=== PATIENT | female | born 1950 | race Hispanic/Latino ===

== ENCOUNTER → 2018-07-30 | Day surgery (SDC) | payer MEDICARE ==
[2018-07-28 10:50] LABS: BASOPHILS % 0.3 % (0.0-1.0); EOSINOPHILS # (AUTO) 0.3 (0.0-0.4); EOSINOPHILS % 3.3 % (0.0-6.0); HEMATOCRIT 36.5 % (34.2-44.1); HEMOGLOBIN 11.2 g/dL (12.0-16.0); LYMPHOCYTES # (AUTO) 2.9 (1.0-3.2); LYMPHOCYTES % 29.4 % (18.0-39.1); MEAN CORPUSCULAR HEMOGLOBIN 28.6 pg (28-32); MEAN CORPUSCULAR HGB CONC 30.7 g/dL (31-35); MEAN CORPUSCULAR VOLUME 93.4 fL (81-99); MONOCYTES # (AUTO) 0.6 (0.2-0.8); MONOCYTES % 5.9 % (4.4-11.3); NEUTROPHILS % 60.6 % (38.7-80.0); PLATELET COUNT 251 x10e3/uL (140-360); RED BLOOD COUNT 3.91 x10e6/uL (3.6-5.1); RED CELL DISTRIBUTION WIDTH 13.2 % (11.7-14.4)
[~2018-07-30] MED LIST: ALBUTEROL0.63 MG/3 INH; ATORVASTATIN CA20 MG PO; BASAGLAR SC; FENTANYL CITRATE/PF 100MCG/2 ML INJ ONE; GABAPENTIN300 MG PO; HUMALOG100 UNIT/3 SC; LOSARTAN POTAS100 MG PO; METFORMIN HCL500 MG PO; MIDAZOLAM HCL 2 MG/2 ML VIAL ONE; PANTOPRAZOLE SO40 MG PO; PROPOFOL IV EMULSION 10 MG/ML 20 ML VIAL ONE
[2018-07-30 10:30] VITALS: BP 121/93
--- NOTE | 2018-07-30 12:59 | Operative Report ---
DATE OF PROCEDURE: July 30, 2018 PROCEDURES PERFORMED 1. Esophagogastroduodenoscopy. 2. Colonoscopy. PREOPERATIVE DIAGNOSES 1. Dysphagia. 2. History of colon polyps. POSTOPERATIVE DIAGNOSES 1. Hiatal hernia. 2. Gastric ulcers. 3. Gastritis. 4. Duodenitis. 5. Colonic polyp in the descending colon. 6. Diverticulosis. The first procedure was the EGD. Using general anesthesia, the Olympus TREVON video gastroscope was inserted into the patient's oropharynx and advanced through the hypopharynx and down into the esophagus. The esophagus was fine, but we took a biopsy looking for the eosinophilic esophagitis. In the lower esophagus we had a sliding-type hiatal hernia from 38 to 39 cm. No evidence of reflux was noted. The stomach was entered and insufflated with air. The mucosal pattern in the cardia, fundus, body and the antrum was viewed. There were multiple small ulcerations in the fundus as well as the antrum and body of the stomach with associated gastritis throughout. As we entered the duodenum, there was evidence of a duodenitis in the duodenal bulb but no ulcerations. The endoscope was then withdrawn back up into the stomach, where biopsies were obtained in the antrum and fundus looking for the H. pylori infection. The endoscope was then withdrawn back up into the esophagus, hypopharynx, oropharynx, and out of the patient's mouth, and the procedure was ended. The next procedure was the colonoscopy. Using the Olympus TREVON video colonoscope, it was inserted into the patient's rectum and advanced without difficulty to the level of the cecum. The cecum did contain a lot of excessive amount of stool; so, we were never able to visualize the appendix but we did visualize the ileocecal valve. The colon was studied from that level back down to the rectum. In the mid descending colon there was a 1 cm size sessile polyp which was removed with the electrical snare cautery. Diverticula were present in the sigmoid and descending colon without evidence of a diverticulitis. The colonoscope was withdrawn from the patient's rectum, and the procedure was ended. In conclusion, we have a benign 1 cm size polyp which was removed with electrical snare cautery and diverticulosis. Job#: [id number]
== END | disposition home or self-care (01) ==
LOC: OR 07:00
PROVIDERS: ATTEND Internal Medicine Gastroenterology
DX: K21.0 Gastro-esophageal reflux disease with esophagitis (principal); K63.5 Polyp of colon; K29.70 Gastritis, unspecified, without bleeding; K25.9 Gastric ulcer, unspecified as acute or chronic, without hemorrhage or perforation; K44.9 Diaphragmatic hernia without obstruction or gangrene; K29.80 Duodenitis without bleeding; K57.30 Diverticulosis of large intestine without perforation or abscess without bleeding; K59.00 Constipation, unspecified; G47.33 Obstructive sleep apnea (adult) (pediatric); J45.909 Unspecified asthma, uncomplicated; I10 Essential (primary) hypertension; E78.5 Hyperlipidemia, unspecified; I83.90 Asymptomatic varicose veins of unspecified lower extremity; E11.9 Type 2 diabetes mellitus without complications; E66.01 Morbid (severe) obesity due to excess calories; F41.9 Anxiety disorder, unspecified; F32.9 Major depressive disorder, single episode, unspecified; Z01.810 Encounter for preprocedural cardiovascular examination; Z01.812 Encounter for preprocedural laboratory examination; Z91.018 Allergy to other foods; Z79.4 Long term (current) use of insulin; Z68.42 Body mass index [BMI] 45.0-49.9, adult; Z87.891 Personal history of nicotine dependence
CPT/HCPCS: 36415 ×2; 43239; 45385; 82948; 85025; 88305; 88312; 93005; J2250; J2704

== ENCOUNTER → 2018-10-22 | Day surgery (SDC) | payer MEDICARE ==
[2018-10-20 14:34] LABS: BASOPHILS % 0.3 % (0.0-1.0); EOSINOPHILS # (AUTO) 0.3 (0.0-0.4); EOSINOPHILS % 3.7 % (0.0-6.0); HEMATOCRIT 35.8 % (34.2-44.1); HEMOGLOBIN 11.1 g/dL (12.0-16.0); LYMPHOCYTES # (AUTO) 2.6 (1.0-3.2); LYMPHOCYTES % 33.2 % (18.0-39.1); MEAN CORPUSCULAR VOLUME 90.2 fL (81-99); MONOCYTES # (AUTO) 0.5 (0.2-0.8); MONOCYTES % 6.5 % (4.4-11.3); NEUTROPHILS # (AUTO) 4.3 (2.1-6.9); NEUTROPHILS % 55.6 % (38.7-80.0); PLATELET COUNT 270 x10e3/uL (140-360); RED BLOOD COUNT 3.97 x10e6/uL (3.6-5.1); RED CELL DISTRIBUTION WIDTH 13.2 % (11.7-14.4)
[~2018-10-22] MED LIST changes: +ASPIR 8181 MG PO; +LIDOCAINE HCL 2% LOCAL INJ 5 ML SDV VIAL INJ ONE
--- OUTSIDE RECORDS SUMMARY | 2018-10-22 06:57 | XMS REPORT ---
Author Author [facility] Address Unknown Phone Unavailable Care Team Providers Care Quality Coordinator Name Role Phone Unavailable Unavailable Problems This patient has no known problems. Allergies, Adverse Reactions, Alerts This patient has no known allergies or adverse reactions. Medications This patient has no known medications. Results Test Description Test Time Test Comments Text Results Atomic Results Result Comments BREAST ULTRASOUND BILATERAL 2018-08-21 12:05:33 - DIAG MAMM BILATERAL TEAGAN CAD DIGITALBILATERAL DIGITAL DIAGNOSTIC MAMMOGRAM 3D/2D WITH CAD: 08/21/2018CLINICAL: Diffuse bilateral breast pain. Digital breast tomosynthesis was performed in addition to routine CC and MLO views. Current mammographic images were evaluated by either a Asana M-Vu or a [email or web address] ImageChecker CAD (computer aided detection system). Comparison is made to exams dated 08/08/2017 mammogram and 08/08/2017 ultrasound - [facility]. The patient is status post bilateral mastectomy with TRAM flap reconstruction. The TRAM flap tissue is almost entirely fatty.No suspicious mass, malignant type calcification, or lymph node abnormality detected. No abnormal mammographic findings to account for the patient's bilateral diffuse lateral breast pain.INCOMPLETE ASSESSMENT: ADDITIONAL IMAGING EVALUATION RECOMMENDEDPatient was taken to ultrasound for further evaluation.- BREAST ULTRASOUND BILATERALULTRASOUND OF BOTH BREASTS AND BOTH AXILLA: 08/21/2018Comparison is mad e to exams dated 08/08/2017 mammogram and 08/08/2017 ultrasound - [facility]. Real-time ultrasound of both TRAM flaps and both axilla was performed. No sonographic abnormality was identified. Normal appearing lymph nodes are seen in the bilateral axilla.The patient directed attention to the 3 o'clock position in the left breast and the 9 o'clock position in the right breast as the areas of pain. At these locations there are no findings to account for the patient's symptoms.IMPRESSION: BENIGN 1. There is no mammographic or targeted sonographic evidence of malignancy in either breast. No findings to account for the patient's symptoms in the lateral aspects of both breasts. Clinical follow-up as needed is recommended and further management of the patient's symptoms should be based on clinical evaluation.2. A follow-up mammogram in 12 months is recommended, if deemed clinically indicated by the referring clinician.Findings and recommendations were discussed with the patient at the conclusion of the examination today.Juliet Raymundo D.O. al/:08/21/2018 12:05:33 Entry: - 08/28/2018 07:31:24Imaging Technologist: Abiola BLEVINS, [facility] sent: BIRADS 1-2 Combo FU Letter Mammogram BI-RADS: 0 Indeterminate Ultrasound BI-RADS: 2 Benign DIAG MAMM BILATERAL TEAGAN CAD DIGITAL 2018-08-21 12:05:33 - DIAG MAMM BILATERAL TEAGAN CAD DIGITALBILATERAL DIGITAL DIAGNOSTIC MAMMOGRAM 3D/2D WITH CAD: 08/21/2018CLINICAL: Diffuse bilateral breast pain. Digital breast tomosynthesis was performed in addition to routine CC and MLO views. Current mammographic images were evaluated by either a Asana M-Vu or a [email or web address] ImageChecker CAD (computer aided detection system). Comparison is made to exams dated 08/08/2017 mammogram and [facility] The patient is status post bilateral mastectomy with TRAM flap reconstruction. The TRAM flap tissue is almost entirely fatty.No suspicious mass, malignant type calcification, or lymph node abnormality detected. No abnormal mammographic findings to account for the patient's bilateral diffuse lateral breast pain.INCOMPLETE ASSESSMENT: ADDITIONAL IMAGING EVALUATION RECOMMENDEDPatient was taken to ultrasound for further evaluation.- BREAST ULTRASOUND BILATERALULTRASOUND OF BOTH BREASTS AND BOTH AXILLA: 08/21/2018Comparison is mad e to exams dated 08/08/2017 mammogram and [facility] Real-time ultrasound of both TRAM flaps and both axilla was performed. No sonographic abnormality was identified. Normal appearing lymph nodes are seen in the bilateral axilla.The patient directed attention to the 3 o'clock position in the left breast and the 9 o'clock position in the right breast as the areas of pain. At these locations there are no findings to account for the patient's symptoms.IMPRESSION: BENIGN 1. There is no mammographic or targeted sonographic evidence of malignancy in either breast. No findings to account for the patient's symptoms in the lateral aspects of both breasts. Clinical follow-up as needed is recommended and further management of the patient's symptoms should be based on clinical evaluation.2. A follow-up mammogram in 12 months is recommended, if deemed clinically indicated by the referring clinician.Findings and recommendations were discussed with the patient at the conclusion of the examination today.Juliet Raymundo D.O. al/:08/21/2018 12:05:33 Entry: - 08/28/2018 07:31:24Imaging Technologist: Abiola BLEVINS, [facility] sent: BIRADS 1-2 Combo FU Letter Mammogram BI-RADS: 0 Indeterminate Ultrasound BI-RADS: 2 Benign
[2018-10-22 10:45] VITALS: BP 137/70
--- NOTE | 2018-10-22 10:57 | Operative Report ---
DATE OF PROCEDURE: October 22, 2018 PROCEDURE PERFORMED: Esophagogastroduodenoscopy. PREOPERATIVE DIAGNOSIS: History of recent gastric ulceration. POSTOPERATIVE DIAGNOSES 1. Gastric ulcer, healed. 2. Residual gastritis. 3. Hiatal hernia with reflux esophagitis unchanged from before. PREOPERATIVE MEDICATIONS: General anesthesia. DESCRIPTION OF PROCEDURE: Using the Olympus Clarity video gastroscope, it was inserted into the patient's oropharynx and advanced down the esophagus. In the esophageal body, everything appeared to be normal. We then had reflux esophagitis above a small hiatal hernia unchanged from before. The stomach was entered and insufflated with air. The mucosa around the cardia, fundus, body and antrum was viewed. The ulceration down in the antrum has since healed, but there was residual gastritis. A biopsy was obtained to rule out H. pylori infection. The pylorus was visualized and entered. The duodenal bulb and postbulbar duodenum were found to be normal. The endoscope was then withdrawn back up into the stomach and retroflexed, viewing the cardia and fundus from below, which again appeared to be normal. The endoscope was placed back in the body of the stomach and then slowly withdrawn back up to the esophagus. We took biopsies at the area of the esophagitis to make sure there was no [place] esophagus present. The endoscope was then withdrawn back to the hypopharynx, oropharynx and out of the patient's mouth, and the procedure was ended. In conclusion, we have findings of a healed gastric ulcer, residual gastritis, residual hiatal hernia and reflux esophagitis. Job#: [id number]
== END | disposition home or self-care (01) ==
LOC: OR 06:54
PROVIDERS: ATTEND Internal Medicine Gastroenterology
DX: K21.0 Gastro-esophageal reflux disease with esophagitis (principal); K29.70 Gastritis, unspecified, without bleeding; K44.9 Diaphragmatic hernia without obstruction or gangrene; J45.909 Unspecified asthma, uncomplicated; G47.33 Obstructive sleep apnea (adult) (pediatric); I10 Essential (primary) hypertension; E78.5 Hyperlipidemia, unspecified; E11.9 Type 2 diabetes mellitus without complications; F41.9 Anxiety disorder, unspecified; Z01.810 Encounter for preprocedural cardiovascular examination; Z01.812 Encounter for preprocedural laboratory examination; Z79.82 Long term (current) use of aspirin; Z79.4 Long term (current) use of insulin; Z68.42 Body mass index [BMI] 45.0-49.9, adult; Z85.3 Personal history of malignant neoplasm of breast
CPT/HCPCS: 36415 ×2; 43239; 82948; 85025; 88305; 88312; 93005; J2001; J2250; J2704

== ENCOUNTER → 2019-04-02 | Day surgery (SDC) | payer MEDICARE ==
--- NOTE | 2019-04-01 11:34 | Diagnostic Imaging Report ---
EXAMINATION: CHEST 2 VIEWS INDICATION: Pre-operative COMPARISON: None FINDINGS: LINES/TUBES:None LUNGS:The lungs are well-inflated. No focal consolidation or pulmonary edema. PLEURA:No pleural effusion or pneumothorax. MEDIASTINUM:The cardiomediastinal silhouette appears normal in size and shape. BONES/SOFT TISSUES:No acute osseous injury. ABDOMEN:No free air under the diaphragm. Surgical clips in both breasts. IMPRESSION: No focal pneumonia or pulmonary edema. Signed by: Maxwell Dempsey MD on 04/01/2019 11:31 AM
[2019-04-01 12:07] LABS: BASOPHILS % 0.3 % (0.0-1.0); EOSINOPHILS # (AUTO) 0.3 (0.0-0.4); EOSINOPHILS % 3.7 % (0.0-6.0); HEMATOCRIT 36.8 % (34.2-44.1); HEMOGLOBIN 11.3 g/dL (12.0-16.0); LYMPHOCYTES # (AUTO) 2.5 (1.0-3.2); LYMPHOCYTES % 34.5 % (18.0-39.1); MEAN CORPUSCULAR HEMOGLOBIN 28.3 pg (28-32); MEAN CORPUSCULAR HGB CONC 30.7 g/dL (31-35); MEAN CORPUSCULAR VOLUME 92.2 fL (81-99); MONOCYTES # (AUTO) 0.5 (0.2-0.8); MONOCYTES % 6.2 % (4.4-11.3); NEUTROPHILS % 54.3 % (38.7-80.0); PLATELET COUNT 276 x10e3/uL (140-360); RED BLOOD COUNT 3.99 x10e6/uL (3.6-5.1); RED CELL DISTRIBUTION WIDTH 13.5 % (11.7-14.4)
[2019-04-01 12:25] LABS: ANION GAP 16.4 mmol/L (8-16); BLOOD UREA NITROGEN 12 mg/dL (7-26); BUN/CREATININE RATIO 15 (6-25); CALCIUM 9.2 mg/dL (8.4-10.2); CARBON DIOXIDE 21 mmol/L (22-29); CHLORIDE 105 mmol/L (98-107); CREATININE, SERUM 0.79 mg/dL (0.57-1.11); EST GLOMERULAR FILTRATION RATE > 60 ML/MIN (60-); GLUCOSE 139 mg/dL (74-118); POTASSIUM 4.4 mmol/L (3.5-5.1); SODIUM 138 mmol/L (136-145)
[~2019-04-02] MED LIST changes: +BUPIVACAINE HCL 0.5% INJ 30 ML VIAL INJ ONE; +CEFAZOLIN SOD 1 GM/NS 50ML 100 ML IV ONE; +DEXAMETHASONE SOD PHOS INJ 4 MG/ML VIAL ONE; +DIOVAN160 MG PO; +FUROSEMIDE40 MG PO; +HYDROCODONE/APAP 5MG-325MG TAB ONE; +KETOROLAC TROMETHAMINE 30 MG/ML VIAL ONE; +LIDOCAINE HCL 1% LOCAL INJ 20 ML VIAL ONE; +ONDANSETRON HCL INJ 2MG/ML 2ML 2 MG/ML VIAL ONE; +ROCURONIUM BROMIDE 10 MG/ML 5ML VIAL ONE; +SEVOFLURANE INHAL SOLN 250 ML PEN BTL ONE; +SUCCINYLCHOLINE 200 MG/10 ML SYR ONE
--- NOTE | 2019-04-02 13:52 | Operative Report ---
DATE OF PROCEDURE: 04/02/2019 SURGEON: Delta Vargas MD PREOPERATIVE DIAGNOSIS: Soft tissue mass, right flank. POSTOPERATIVE DIAGNOSIS: Soft tissue mass, right flank. PROCEDURE: Excision of soft tissue mass, right flank, 8 cm with layered closure. MEDIA RECONCILIATION SPECIALIST: None. ANESTHESIA: General. INDICATIONS AND FINDINGS: The patient is a 68-year-old female, who presented with complaints of mass in the right flank that is increased in size. 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 TECHNIQUE: After adequate general endotracheal anesthesia, the patient in left side down position, the right flank was prepped and draped in a sterile fashion with ChloraPrep solution. Transverse incision was made over the area of the mass, carried down through subcutaneous tissue and superficial fascia. The mass was seen beneath the superficial fascia. The well-circumscribed fatty tumor was completely excised from surrounding tissues down to the chest wall muscle. Hemostasis achieved with electrocautery. The mass was a well-circumscribed fatty tumor, it was about 8 cm in diameter. It was irrigated with saline, inspected for hemostasis which was seen to be adequate. The wound was then infiltrated with 0.5% Marcaine. The wound was then closed in layers with 3-0 Vicryl subcutaneous tissue and then 4-0 Vicryl subcuticular to the skin. Dermabond and sterile dressing were applied to the wound. The patient tolerated the procedure well. Estimated blood loss was less than 5 mL. There were no complications. All counts were correct. The patient was taken to the recovery room in satisfactory condition. Delta Vargas MD DWG/MODL /[id number] cc: Erick Hernandez MD
[2019-04-02 14:00] VITALS: BP 135/65
== END | disposition home or self-care (01) ==
LOC: OR 10:04
PROVIDERS: ATTEND Surgery
DX: D17.79 Benign lipomatous neoplasm of other sites (principal); J45.909 Unspecified asthma, uncomplicated; G47.33 Obstructive sleep apnea (adult) (pediatric); R03.0 Elevated blood-pressure reading, without diagnosis of hypertension; E11.9 Type 2 diabetes mellitus without complications; K21.9 Gastro-esophageal reflux disease without esophagitis; I65.29 Occlusion and stenosis of unspecified carotid artery; Z01.810 Encounter for preprocedural cardiovascular examination; Z01.812 Encounter for preprocedural laboratory examination; Z01.818 Encounter for other preprocedural examination; Z79.4 Long term (current) use of insulin; Z79.84 Long term (current) use of oral hypoglycemic drugs; Z79.82 Long term (current) use of aspirin; Z68.42 Body mass index [BMI] 45.0-49.9, adult; Z87.891 Personal history of nicotine dependence
CPT/HCPCS: 21933; 36415 ×2; 71046; 80048; 82948; 85025; 88304; 93005; J0690; J1100; J1885; J2001; J2250; J2405; J2704; J3010